=== PATIENT | female | born 1935 | race Caucasian/White ===

== ENCOUNTER 2024-01-02 20:06 | Emergency (ER) | payer MEDICARE, OTHER, SELFPAY ==
[2024-01-02 20:11] VITALS: BP 172/88; PULSE 84; RESP 24; TEMP 36.6; O2SAT 99; BMI 16.5
[2024-01-02 20:18] VITALS: PULSE 74
--- NOTE | 2024-01-02 20:18 | ECG_ITS ---
The [facility] Test Date: 2024-01-02 Pat Name: CAITLYN GORDON Department: Room: - Gender: Female [employer]: : 1935 Requested By: [id number] Order Number: [id number] Reading MD: TURNER EVERETT Measurements Intervals [place] Rate: 74 P: 76 VA: 170 QRS: 51 QRSD: 126 T: 76 QT: 398 QTc: 425 Interpretive Statements 1100 Sinus rhythm with occasional PVC LEFT BUNDLE BRANCH BLOCK with secondary ST/T wave changes Inferior ischemia can't be excluded 9150 abnormal ECG No previous ECG available for comparison Electronically Signed On 01-02-2024 23:13:40 EST by TURNER EVERETT
--- NOTE | 2024-01-02 20:32 | XR_ITS ---
The [address] [address] Patient Name: CAITLYN GORDON MRN: [id number] date: 1935 Sex: F Assigned Patient Location: ER Current Patient Location: ER Accession/Order Number: [id number] Exam Date: 01/02/2024 20:40 Report Date: 01/02/2024 21:07 At the request of: ROXANNA MARKER Procedure: XR chest 2V XR chest 2V 01/02/2024 7:40 PM TELEMETRY MONITOR: History: SOB . Chest pain Comparison: None. Technique: 2 view chest Findings: The cardiomediastinal silhouette is normal. The lungs are hyperexpanded. There is chronic appearing prominence of the pulmonary interstitium. There is mild central vascular prominence of the right hilum. There is a left perihilar nodular opacity measuring 15 mm. The bones are intact. XR/XR chest 2V Impression: 1. 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 2. 15 mm nodular opacity in the left upper lobe adjacent to the left hilum. Recommend further evaluation with CT imaging of the chest. Electronically authenticated by: ERENDIRA CUNNINGHAM Date: 01/02/2024 21:07
--- NOTE | 2024-01-02 20:33 | ED_ITS ---
HPI - SOB/Dyspnea General Chief Complaint: Shortness of Breath/Dyspnea Stated Complaint: SHORTNESS OF BREATH FEET SWELLING Time Seen by Provider: 01/02/24 20:16 Source: patient Mode of arrival: Wheelchair History of Present Illness HPI Narrative: This 88-year-old female who is on spironolactone diuretic presents for evaluation of 2 days of increasing shortness of breath. She states she is not coughing. She does not have a history of tobacco use her chronic obstructive pulmonary disease. She has also had some intermittent right sided chest pain and left arm pain. She states that she felt that the muscle on the right side of her chest was jumping around earlier today. She has also had lower extremity swelling of her feet and ankles that started earlier today. He has not had a fever. She denies any diaphoresis or syncope but states she was a little bit dizzy earlier today. She does not have a support director. She sees Dr. Baker. Related Data Home Medications Medication Instructions Recorded Confirmed alprazolam 0.5 mg tablet 0.5 mg PO QPM 01/02/24 01/02/24 aspirin 81 mg tablet,delayed 81 mg PO DAILY 01/02/24 01/02/24 release (Adult Low Dose Aspirin) calcium carbonate 500 mg-vitamin 1 tab PO BID 01/02/24 01/02/24 D3 5 mcg (200 unit) tablet (Oyster Shell Calcium-Vitamin D3) carvedilol 12.5 mg tablet 12.5 mg PO BID 01/02/24 01/02/24 gabapentin 100 mg capsule 100 mg PO DAILY 01/02/24 01/02/24 latanoprost 0.005 % eye drops 1 drp ophthalmic (eye) QPM 01/02/24 01/02/24 levothyroxine 100 mcg tablet 100 mcg PO QAM 01/02/24 01/02/24 losartan 50 mg tablet 50 mg PO DAILY 01/02/24 01/02/24 spironolactone 25 mg tablet 25 mg PO DAILY 01/02/24 01/02/24 Allergies Allergy/AdvReac Type Severity Reaction Status Date / Time Iodinated Contrast Media Allergy Severe Verified 01/02/24 20:18 Penicillins Allergy Severe Verified 01/02/24 20:18 Review of Systems ROS Status of ROS 10 or more systems reviewed and unremark able except as noted in history and below Exam Narrative Exam Narrative: Nurses note and vital signs reviewed and patient is not hypoxic. Blood pressure is elevated at 172/88 General: Well-appearing elderly female resting currently on the stretcher, no respiratory distress, she is speaking in complete sentences Skin: Warm, dry, no pallor noted. There is no rash noted. Head: Normocephalic, atraumatic Eye: Normal conjunctiva, no drainage, EOMI. PERRL Ears, Nose, Mouth, and Throat: oral mucosa is moist. Nares patent. Cardiovascular: Regular Rate and Rhythm,S1 and S2, pulses are brisk and equal bilaterally Respiratory: Patient is in no distress, no accessory muscle use, lungs are clear to auscultation, no wheezing, rales or rhonchi Back: non-tender, no CVA tenderness bilaterally to percussion. GI: Normal bowel sounds, no tenderness to palpation, no masses appreciated. No rebound, guarding, or rigidity noted. Musculoskeletal: There is 1-2+ swelling of the feet and ankles. The Soft and Nontender, Negative Homans Sign Neurological: A&O x4, normal speech Psychiatric: Cooperative Constitutional Vital Signs, click to edit/add: Last Vital Signs Temp 97.9 F 01/02/24 20:11 Pulse 75 01/02/24 22:58 Resp 20 01/02/24 22:58 BP 168/85 H 01/02/24 22:58 Pulse Ox 98 01/02/24 22:58 O2 Del Method Room Air 01/02/24 22:58 Course Vital Signs Vital signs: Vital Signs Temperature 97.9 F 01/02/24 20:11 Pulse Rate 84 01/02/24 20:11 Respiratory Rate 24 01/02/24 20:11 Blood Pressure 172/88 H 01/02/24 20:11 Pulse Oximetry 99 01/02/24 20:11 Oxygen Delivery Method Room Air 01/02/24 20:11 Temperature 97.9 F 01/02/24 20:11 Pulse Rate 75 01/02/24 22:58 Respiratory Rate 20 01/02/24 22:58 Blood Pressure 168/85 H 01/02/24 22:58 Pulse Oximetry 98 01/02/24 22:58 Oxygen Delivery Method Room Air 01/02/24 22:58 MDM - SOB/Dyspnea MDM Narrative Medical decision making narrative: 88-year-old female with a history of hypertension who is on spironolactone diuretic presents for evaluation of shortness of breath and swelling of her feet and ankles. She has been short of breath increasingly for the past several days and her ankles have swollen up today. She also had some right-sided chest pain and left arm pain. He complains of mild dizziness but no diaphoresis or syncope. She has not having any abdominal pain or back pain. She does take a daily baby aspirin. Her blood pressure was noted to be elevated upon arrival at 172/92. She is not hypoxic. She does not have a history of tobacco use or chronic obstructive pulmonary disease. EKG done on arrival was a sinus rhythm at 74 beats for minute with occasional PVCs. An IV was placed routine labs ordered. Her thyroid-stimulating hormone is normal at 0.573. BNP is elevated at 2044. She has a normal white count of 6.6 and hemoglobin of 10.3. Her BUN and creatinine were elevated at 29 and 1.54. I am unable to find any previous labs in our computer system to ascertain whether this is chronic or acute. She has normal troponin at 11.4. Chest x-ray showed a mild central vascular prominence of the right hilum and a left perihilar nodule opacity measuring 15 mm[address] It suggested a CT scan of the chest. Due to the renal insufficiency and history of contrast media ALLERGY a noncontrast CAT scan of the chest was ordered. She was medicated with 20 mg of IV Lasix for the elevated BNP and mild fluid overload. Repeat troponin is ordered after the CT scan. Contrast CT scan of the chest which is included in the body of this report shows sequelae of granulomatous disease with chronic changes and no acute pulmonary n odules or other concerning findings. This was discussed with the patient and her daughter and she was given a copy of the report. Her blood pressure is clinically improved, this dictation it is 168/86. Her pulse ox is 96 percent on room air. We discussed her elevated blood pressure and I explained that I am not going to get aggressive treating the elevated blood pressure at this time because she is going to be getting Lasix that will decrease her blood pressure due to the volume loss. She verbalizes understanding of this. She has follow-up appointment with her family physician on Saturday. She will be given a prescription for Lasix 20 mg to use for the next 5 days. Repeat troponin is 16.1 (within normal limits). Medical Records Medical records narrative: The [address] [address] [address] Scan Report Signed Patient: CAITLYN GORDON MR#: [id number] : 1935 Acct:[id number] Age/Sex: 88 / F ADM Date: 01/02/24 Loc: ER Attending Dr: Ordering Physician: Roxanna Arnold Date of Service: 01/02/24 Procedure(s): CT chest wo con Accession Number(s): [id number] cc: Shaikh Luc Baker~ The [address] [address] Patient Name: CAITLYN GORDON MRN: [id number] date: 1935 Sex: F Assigned Patient Location: ER Current Patient Location: ER Accession/Order Number: [id number] Exam Date: 01/02/2024 21:54 Report Date: 01/02/2024 22:26 At the request of: ROXANNA ARNOLD Procedure: CT chest wo con EXAM: CT chest wo con HISTORY: L perihilar nodule seen on CXR COMPARISON: Chest x-ray 01/02/2024 TECHNIQUE: Unenhanced axial CT of the chest was performed with coronal and sagittal reformats provided. FINDINGS: Neck/mediastinum: Thyroid is not visualized. No supraclavicular, axillary, mediastinal or hilar lymphadenopathy. Calcified mediastinal and right hilar lymph nodes likely sequelae of prior granulomatous disease. Cardiovascular: Normal heart size without pericardial effusion or thickening. Severe calcific atherosclerosis of the coronary arteries. Normal caliber of the ascending thoracic aorta and the main pulmonary artery. Lungs/pleura/airways: Trachea and mainstem bronchi are clear. No pneumothorax, pleural effusion or consolidation. Biapical scarring of the lungs. No concerning pulmonary nodules. Mild diffuse fibrotic changes in the lungs. Upper abdomen: Punctate calcifications in the liver and spleen likely sequelae of prior granulomatous disease. Partially imaged cyst of the left kidney. Status post cholecystectomy. Musculoskeletal/soft tissues: Soft tissues are within normal limits. No acute or aggressive osseous abnormality. Kyphotic curvature of the thoracic spine. CT/CT chest wo con IMPRESSION: No concerning pulmonary nodules. There is sequelae of prior granulomatous disease. Mild diffuse fibrotic changes of the lungs. Lab Data Labs: Lab Results 01/02/24 01/02/24 01/02/24 Range/Units 20:25 20:50 22:18 WBC 6.6 (4.0-11.0) 10^3/uL RBC 3.19 L (4.20-5.40) 10^6/uL Hgb 10.3 L (12.0-16.0) g/dL Hct 30.4 L (36.0-48.0) % MCV 95.3 (81.0-99.0) fL MCH 32.3 (26.7-34.0) pg MCHC 33.9 (29.9-35.2) g/dL RDW 12.8 (11.0-15.0) % Plt Count 238 (150-450) 10^3/uL MPV 11.1 (9.5-13.5) fL Neut % (Auto) 68.6 (43.0-75.0) % Lymph % (Auto) 22.1 (20.5-60.0) % [place] % (Auto) 7.0 (1.7-12.0) % Eos % (Auto) 1.4 (0.9-7.0) % Baso % (Auto) 0.6 (0.2-2.0) % Neut # (Auto) 4.5 (1.4-6.5) 10^3/uL Lymph # (Auto) 1.5 (1.2-3.8) 10^3/uL [place] # (Auto) 0.5 (0.3-0.8) 10^3/uL Eos # (Auto) 0.1 (0.0-0.7) 10^3/uL Baso # (Auto) 0.0 (0.0-0.1) 10^3/uL Abs Immat Gran (auto) 0.02 (0.00-0.03) 10^3/uL Imm/Tot Granulo (auto) 0.3 (0.0-0.5) % Sodium 137 (136-145) mmol/L Potassium 5.2 H (3.5-5.1) mmol/L Chloride 104 (98-107) mmol/L Carbon Dioxide 24.7 (21.0-32.0) mmol/L Anion Gap 13.5 BUN 29.0 H (7.0-18.0) mg/dL Creatinine 1.54 H (0.55-1.02) mg/dL Est GFR ( Amer) 39 L (>=60) Est GFR (Non-Af Amer) 32 L (>=60) BUN/Creatinine Ratio 18.8 Glucose 109 H (74-106) mg/dL Calcium 9.5 (8.5-10.1) mg/dL Total Bilirubin 0.4 (0.2-1.0) mg/dL AST 25 (15-37) U/L ALT 19 (14-59) U/L Alkaline Phosphatase 82 (46-116) U/L Troponin I High Sens 11.4 16.1 (4.0-51.3) pg/mL NT-Pro-B Natriuret Pep 2044.0 H* (<=1800.0) pg/mL Total Protein 6.4 (6.4-8.2) g/dL Albumin 3.5 (3.4-5.0) g/dL Globulin 2.9 g/dL Albumin/Globulin Ratio 1.2 TSH & Free T4 Interp 0.573 (0.358-3.740) uIU/mL Urine Color (YELLOW) Urine Clarity (CLEAR) Urine pH (5.0-9.0) Ur Specific [place] (1.005-1.025) Urine Protein (NEG/TRACE) mg/dL Urine Glucose (UA) (NEGATIVE) mg/dL Urine Ketones (NEGATIVE) mg/dL Urine Occult Blood (NEGATIVE) Urine Nitrite (NEGATIVE) Urine Bilirubin (NEGATIVE) Urine Urobilinogen (0.2-1.0) EU/dL Ur Leukocyte Esterase (NEGATIVE) Urine RBC (0-2) #/HPF Urine WBC (NONE SEEN) #/HPF Ur Squamous Epith Cells (NONE/RARE) #/LPF Urine Crystals (None Seen) #/HPF Urine Bacteria (NONE SEEN) #/HPF Urine Casts (NONE SEEN) #/LPF Urine Mucus (NONE SEEN) Adenovirus (PCR) Not detected (NOT DETECTE) C. pneumoniae DNA (PCR) Not detected (NOT DETECTE) Coronavirus Type OC43 Not detected (NOT DETECTE) Coronavirus Type HKU1 Not detected (NOT DETECTE) Coronavirus Type 229E Not detected (NOT DETECTE) Coronavirus Type NL63 Not detected (NOT DETECTE) Human Metapneumovir PCR Not detected (NOT DETECTE) M. pneumoniae (PCR) Not detected (NOT DETECTE) Parainfluenza PCR Not detected (NOT DETECTE) Parainfluenza 2 (PCR) Not detected (NOT DETECTE) Parainfluenza 3 (PCR) Not detected (NOT DETECTE) Parainfluenza 4 (PCR) Not detected (NOT DETECTE) RSV (RT-PCR) Not detected (NOT DETECTE) Entero/Rhino (PCR) Not detected (NOT DETECTE) SARS-CoV-2 (PCR) Not detected (NOT DETECTE) Bordetella pertussis (PCR) Not detected (NOT DETECTE) B parapertussis DNA PCR Not detected (NOT DETECTE) Influenza Type A (PCR) Not detected (NOT DETECTE) Influenza Type B (PCR) Not detected (NOT DETECTE) 01/02/24 Range/Units 23:25 WBC (4.0-11.0) 10^3/uL RBC (4.20-5.40) 10^6/uL Hgb (12.0-16.0) g/dL Hct (36.0-48.0) % MCV (81.0-99.0) fL MCH (26.7-34.0) pg MCHC (29.9-35.2) g/dL RDW (11.0-15.0) % Plt Count (150-450) 10^3/uL MPV (9.5-13.5) fL Neut % (Auto) (43.0-75.0) % Lymph % (Auto) (20.5-60.0) % [place] % (Auto) (1.7-12.0) % Eos % (Auto) (0.9-7.0) % Baso % (Auto) (0.2-2.0) % Neut # (Auto) (1.4-6.5) 10^3/uL Lymph # (Auto) (1.2-3.8) 10^3/uL [place] # (Auto) (0.3-0.8) 10^3/uL Eos # (Auto) (0.0-0.7) 10^3/uL Baso # (Auto) (0.0-0.1) 10^3/uL Abs Immat Gran (auto) (0.00-0.03) 10^3/uL Imm/Tot Granulo (auto) (0.0-0.5) % Sodium (136-145) mmol/L Potassium (3.5-5.1) mmol/L Chloride (98-107) mmol/L Carbon Dioxide (21.0-32.0) mmol/L Anion Gap BUN (7.0-18.0) mg/dL Creatinine (0.55-1.02) mg/dL Est GFR ( Amer) (>=60) Est GFR (Non-Af Amer) (>=60) BUN/Creatinine Ratio Glucose (74-106) mg/dL Calcium (8.5-10.1) mg/dL Total Bilirubin (0.2-1.0) mg/dL AST (15-37) U/L ALT (14-59) U/L Alkaline Phosphatase (46-116) U/L Troponin I High Sens (4.0-51.3) pg/mL NT-Pro-B Natriuret Pep (<=1800.0) pg/mL Total Protein (6.4-8.2) g/dL Albumin (3.4-5.0) g/dL Globulin g/dL Albumin/Globulin Ratio TSH & Free T4 Interp (0.358-3.740) uIU/mL Urine Color Lt. yellow (YELLOW) Urine Clarity Clear (CLEAR) Urine pH 6.0 (5.0-9.0) Ur Specific [place] 1.010 (1.005-1.025) Urine Protein Negative (NEG/TRACE) mg/dL Urine Glucose (UA) Negative (NEGATIVE) mg/dL Urine Ketones Negative (NEGATIVE) mg/dL Urine Occult Blood Negative (NEGATIVE) Urine Nitrite Negative (NEGATIVE) Urine Bilirubin Negative (NEGATIVE) Urine Urobilinogen 0.2 (0.2-1.0) EU/dL Ur Leukocyte Esterase Negative (NEGATIVE) Urine RBC 0-2 (0-2) #/HPF Urine WBC None seen (NONE SEEN) #/HPF Ur Squamous Epith Cells Rare (NONE/RARE) #/LPF Urine Crystals None seen (None Seen) #/HPF Urine Bacteria None seen (NONE SEEN) #/HPF Urine Casts None seen (NONE SEEN) #/LPF Urine Mucus None seen (NONE SEEN) Adenovirus (PCR) (NOT DETECTE) C. pneumoniae DNA (PCR) (NOT DETECTE) Coronavirus Type OC43 (NOT DETECTE) Coronavirus Type HKU1 (NOT DETECTE) Coronavirus Type 229E (NOT DETECTE) Coronavirus Type NL63 (NOT DETECTE) Human Metapneumovir PCR (NOT DETECTE) M. pneumoniae (PCR) (NOT DETECTE) Parainfluenza PCR (NOT DETECTE) Parainfluenza 2 (PCR) (NOT DETECTE) Parainfluenza 3 (PCR) (NOT DETECTE) Parainfluenza 4 (PCR) (NOT DETECTE) RSV (RT-PCR) (NOT DETECTE) Entero/Rhino (PCR) (NOT DETECTE) SARS-CoV-2 (PCR) (NOT DETECTE) Bordetella pertussis (PCR) (NOT DETECTE) B parapertussis DNA PCR (NOT DETECTE) Influenza Type A (PCR) (NOT DETECTE) Influenza Type B (PCR) (NOT DETECTE) ECG Data Attestation: I personally reviewed and interpreted this ECG as follows: (Sinus rhythm at 74 beats for minute with occasional PVCs, normal axis, shortened MA interval at 170 ms Q waves noted in leads V1 and V3, no acute ST segment elevation or T-wave inversion) Discharge Plan Discharge Chief Complaint: Shortness of Breath/Dyspnea Clinical Impression: Elevated blood pressure reading, Congestive heart failure, Renal insufficiency, Fluid overload Patient Disposition: Home, Self-Care Time of Disposition Decision: 23:30 Condition: Good Mode of Transportation: Private Vehicle Prescriptions / Home Meds: No Action alprazolam 0.5 mg tablet 0.5 mg PO QPM calcium carbonate-vitamin D3 [Oyster Shell Calcium-Vit D3] 500 mg-5 mcg (200 unit) tablet 1 tab PO BID latanoprost 0.005 % drops 1 drp OPHTHALMIC (EYE) QPM levothyroxine 100 mcg tablet 100 mcg PO QAM losartan 50 mg tablet 50 mg PO DAILY spironolactone 25 mg tablet 25 mg PO DAILY gabapentin 100 mg capsule 100 mg PO DAILY carvedilol 12.5 mg tablet 12.5 mg PO BID aspirin [Adult Low Dose Aspirin] 81 mg tablet,delayed release (DR/EC) 81 mg PO DAILY Instructions: Low-Sodium Diet (ED), Fluid Restriction (ED), Impaired Kidney Function (ED) Referrals: Shaikh Baker MD [Primary Care Provider] - 1 week Discharge Date/Time: 01/02/24 23:43 Stand Alone Forms: Portal Instructions
[2024-01-02 20:35] VITALS: O2SAT 99
[2024-01-02 20:44] LABS: Basophils Percent Auto 0.6 % (0.2-2.0); Eosinophils Absolute Auto 0.1 10^3/uL (0.0-0.7); Eosinophils Percent Auto 1.4 % (0.9-7.0); Hematocrit 30.4 % (36.0-48.0); Hemoglobin 10.3 g/dL (12.0-16.0); Immature Granulocytes Abs Auto 0.02 10^3/uL (0.00-0.03); Immature Granulocytes Pct Auto 0.3 % (0.0-0.5); Lymphocytes Absolute Auto 1.5 10^3/uL (1.2-3.8); Lymphocytes Percent Auto 22.1 % (20.5-60.0); Mean Corpuscular HGB Conc 33.9 g/dL (29.9-35.2); Mean Corpuscular Hemoglobin 32.3 pg (26.7-34.0); Mean Corpuscular Volume 95.3 fL (81.0-99.0); Mean Platelet Volume 11.1 fL (9.5-13.5); Monocytes Absolute Auto 0.5 10^3/uL (0.3-0.8); Neutrophils Absolute Auto 4.5 10^3/uL (1.4-6.5); Neutrophils Percent Auto 68.6 % (43.0-75.0); Platelet Count 238 10^3/uL (150-450); Red Blood Count 3.19 10^6/uL (4.20-5.40); Red Cell Distribution Width 12.8 % (11.0-15.0); White Blood Count 6.6 10^3/uL (4.0-11.0)
[2024-01-02 20:56] LABS: Adenovirus NOT DETECTED (NOT DETECTE); Bordetella parapertussis NOT DETECTED (NOT DETECTE); Coronavirus 229E NOT DETECTED (NOT DETECTE); Coronavirus HKU1 NOT DETECTED (NOT DETECTE); Coronavirus NL63 NOT DETECTED (NOT DETECTE); Coronavirus OC43 NOT DETECTED (NOT DETECTE); Human Metapneumovirus NOT DETECTED (NOT DETECTE); Human Rhinovirus/Enterovirus NOT DETECTED (NOT DETECTE); Influenza A NOT DETECTED (NOT DETECTE); Influenza B NOT DETECTED (NOT DETECTE); Mycoplasma pneumoniae NOT DETECTED (NOT DETECTE); Parainfluenza Virus 1 NOT DETECTED (NOT DETECTE); Parainfluenza Virus 2 NOT DETECTED (NOT DETECTE); Parainfluenza Virus 3 NOT DETECTED (NOT DETECTE); Parainfluenza Virus 4 NOT DETECTED (NOT DETECTE); Respiratory Syncytial Virus NOT DETECTED (NOT DETECTE); SARS-CoV-2 NOT DETECTED (NOT DETECTE)
[2024-01-02 21:15] LABS: Alanine Aminotransferase 19 U/L (14-59); Albumin Globulin Ratio 1.2; Albumin Level 3.5 g/dL (3.4-5.0); Alkaline Phosphatase 82 U/L (46-116); Anion Gap 13.5; Aspartate Amino Transferase 25 U/L (15-37); BUN Creatinine Ratio 18.8; Bilirubin Total 0.4 mg/dL (0.2-1.0); Calcium 9.5 mg/dL (8.5-10.1); Carbon Dioxide 24.7 mmol/L (21.0-32.0); Chloride 104 mmol/L (98-107); Estimated GFR (African America 39 (>=60); Estimated GFR (Non-African Ame 32 (>=60); Globulin 2.9 g/dL; Glucose 109 mg/dL (74-106); Potassium 5.2 mmol/L (3.5-5.1); Sodium 137 mmol/L (136-145); TSH W/ REFLEX FT4 0.573 uIU/mL (0.358-3.740); Total Protein 6.4 g/dL (6.4-8.2); Troponin I High Sensitivity 11.4 pg/mL (4.0-51.3)
--- NOTE | 2024-01-02 21:41 | CT_ITS ---
The [address] [address] Patient Name: CAITLYN GORDON MRN: [id number] date: 1935 Sex: F Assigned Patient Location: ER Current Patient Location: ER Accession/Order Number: [id number] Exam Date: 01/02/2024 21:54 Report Date: 01/02/2024 22:26 At the request of: ROXANNA MARKER Procedure: CT chest wo con EXAM: CT chest wo con HISTORY: L perihilar nodule seen on CXR COMPARISON: Chest x-ray 01/02/2024 TECHNIQUE: Unenhanced axial CT of the chest was performed with coronal and sagittal reformats provided. FINDINGS: Neck/mediastinum: Thyroid is not visualized. No supraclavicular, axillary, mediastinal or hilar lymphadenopathy. Calcified mediastinal and right hilar lymph nodes likely sequelae of prior granulomatous disease. Cardiovascular: Normal heart size without pericardial effusion or thickening. Severe calcific atherosclerosis of the coronary arteries. Normal caliber of the ascending thoracic aorta and the main pulmonary artery. Lungs/pleura/airways: Trachea and mainstem bronchi are clear. No pneumothorax, pleural effusion or consolidation. Biapical scarring of the lungs. No concerning pulmonary nodules. Mild diffuse fibrotic changes in the lungs. Upper abdomen: Punctate calcifications in the liver and spleen likely sequelae of prior granulomatous disease. Partially imaged cyst of the left kidney. Status post cholecystectomy. Musculoskeletal/soft tissues: Soft tissues are within normal limits. No acute or aggressive osseous abnormality. Kyphotic curvature of the thoracic spine. CT/CT chest wo con IMPRESSION: No concerning pulmonary nodules. There is sequelae of prior granulomatous disease. Mild diffuse fibrotic changes of the lungs. Electronically authenticated by: TIMOTHY PALM Date: 01/02/2024 22:26
[2024-01-02 21:47] VITALS: BP 172/92; PULSE 78; RESP 24; O2SAT 98
[2024-01-02 22:53] LABS: Troponin I High Sensitivity 16.1 pg/mL (4.0-51.3)
[2024-01-02 22:56] VITALS: BP 168/86
[2024-01-02] MEDS: FUROSEMIDE 20 MG/2 ML VIAL IVP (22:56)
[2024-01-02 22:58] VITALS: BP 168/85; PULSE 75; RESP 20; O2SAT 98
[2024-01-02 23:37] LABS: Bilirubin Urine NEGATIVE (NEGATIVE); Blood Urine NEGATIVE (NEGATIVE); Clarity Urine CLEAR (CLEAR); Color Urine LT. YELLOW (YELLOW); Glucose Urine UA NEGATIVE (NEGATIVE); Ketones Urine NEGATIVE (NEGATIVE); Leukocyte Esterase Urine NEGATIVE (NEGATIVE); Nitrite Urine NEGATIVE (NEGATIVE); Protein Urine NEGATIVE (NEG/TRACE); Urobilinogen Urine 0.2 EU/dL (0.2-1.0)
[2024-01-02 23:47] LABS: Bacteria Urine NONE SEEN #/HPF (NONE SEEN); Cast Seen? NONE SEEN #/LPF (NONE SEEN); Crystals Seen? None Seen #/HPF (None Seen); Mucus Urine NONE SEEN (NONE SEEN); RBC Urine 0-2 #/HPF (0-2); Squamous Epithelial Cell Urine RARE #/LPF (NONE/RARE); WBC Urine NONE SEEN #/HPF (NONE SEEN)
== END 2024-01-02 23:43 | disposition home or self-care (01) ==
PROVIDERS: Emergency Provider Emergency Medicine; PCP Internal Medicine
DX: I11.0 Hypertensive heart disease with heart failure (principal); I50.9 Heart failure, unspecified; N28.9 Disorder of kidney and ureter, unspecified; Z79.82 Long term (current) use of aspirin; Z79.899 Other long term (current) drug therapy; Z79.890 Hormone replacement therapy; Z20.822 Contact with and (suspected) exposure to COVID-19
CPT/HCPCS: 0202U; 36415; 71046; 71250; 80053; 81001; 83880; 84443; 84484; 85025; 93005; 96374; 99285